=== PATIENT | female | born 1965 | race Two or more races ===

== ENCOUNTER 2017-05-19 15:20 | Emergency (ER) | payer MEDICAID ==
[~2017-05-19] VITALS: Ht 152.4 cm; Wt 88.9 kg
[2017-05-19 15:30] VITALS: BP 161/74
[2017-05-19] MEDS ORDERED: Metoclopramide 10mg/2ml Inj IM ONE (15:30)
[2017-05-19] MEDS ORDERED: DiphenhydrAMINE 50mg/ml Inj IM ONE (15:30)
[2017-05-19] MEDS ORDERED: Ketorolac 30mg Inj IM ONE (15:30)
[2017-05-19] MEDS ORDERED: IBUPROFEN600 MG ORAL (16:33)
[2017-05-19 16:36] VITALS: BP 125/59
[2017-05-19 16:37] VITALS: BP 125/59
--- NOTE | 2017-05-19 17:41 | Emergency Room Report ---
History of Present Illness General Chief Complaint: Headache Source: Patient Present Illness HPI The patient is a 52-year-old female presenting for headache for the past 5 days. The patient describes headache as a 9/10 dull ache to the top of the head and does not radiate. She admits to nausea but denies any vomiting. She denies history of migraines. No known provoking relieving factors. She does admit to difficulty speaking before the headache began. She has not tried any medications at home. She denies any other symptoms including F, rash, dizziness, blurred vision, CP, SOB, neck pain Allergies: Coded Allergies: No Known Allergies (Unverified , 05/19/17) Patient History Past Medical History: see triage record Pertinent Family History: none Last Menstrual Period: 05/16/17 Reviewed Nursing Documentation: PMH: Agreed, PSxH: Agreed Nursing Documentation-PMH Past Medical History: No Stated History Review of Systems All Other Systems: negative except mentioned in HPI Physical Exam Vital Signs Date Time Temp Pulse Resp B/P Pulse Ox O2 Delivery O2 Flow Rate FiO2 05/19/17 15:26 97.9 81 16 161/74 98 Room Air Sp02 EP Interpretation: reviewed, normal General Appearance: no apparent distress, alert, GCS 15, non-toxic Head: normocephalic, atraumatic, other - TTP over parietal region Eyes: bilateral eye PERRL, bilateral eye normal inspection ENT: hearing grossly normal, normal pharynx, no angioedema, normal voice Neck: full range of motion, supple/symm/no masses Cardiovascular #1: regular rate, rhythm, no edema Genitourinary: normal inspection, no CVA tenderness Musculoskeletal: back normal, gait/station normal, normal range of motion, non- tender Neurologic: alert, oriented x3, responsive, motor strength/tone normal, sensory intact, speech normal Psychiatric: judgement/insight normal, memory normal, mood/affect normal, no suicidal/homicidal ideation Skin: normal color, no rash, warm/dry, well hydrated Lymphatic: no adenopathy Medical Decision Making PA Attestation Dr. brown is my supervising physician. Patient management was discussed with my supervising physician Diagnostic Impression: Primary Impression: Headache Qualified Codes: R51 - Headache ER Course The patient is a 52-year-old female presenting for headache for the past 5 days Differential diagnoses include but not limited to Migraine, tension headache, sinusitis, anxiety, among others PE: Initially HTN. Head NC/AT. TTP over parietal region only Otherwise exam unremarkable She is given IM Benadryl, Toradol, and Reglan. She feels much better and pain has decreased. The patient discharged home with a prescription for Motrin. ER precautions given Last Vital Signs Date Time Temp Pulse Resp B/P Pulse Ox O2 Delivery O2 Flow Rate FiO2 05/19/17 16:37 97.9 76 18 125/59 98 Room Air Status: improved Disposition: HOME, SELF-CARE Condition: Improved Scripts Ibuprofen* (MOTRIN*) 600 Mg Tablet 600 MG ORAL Q8H Y for For Pain, #30 TAB 0 Refills Prov: DAJUAN MILLER 05/19/17 Patient Instructions: General Headache Without Cause Additional Instructions: I discussed my findings with the patient. All questions and concerns have been answered. Treatment and medication compliance have been addressed. I advised the patient that they need to follow up with PMD in 3-5 days. Return to ED if symptoms worsen, new symptoms arise, or if needed for any reason. Patient verbalized understanding of discharge instructions. DAJUAN MILLER May 19, 2017 17:41
== END 2017-05-19 16:39 | disposition home or self-care (01) ==
LOC: EMR 16:24
DX: R51 Headache (principal)
CPT/HCPCS: 96372; 99283; J1200; J1885; J2765